=== PATIENT | female | born 1995 | race Two or more races ===

== ENCOUNTER 2024-08-11 21:03 | Emergency (ER) | payer MEDICAID, SELFPAY ==
[2024-08-11 21:03] VITALS: BMI 33.6
[2024-08-11 21:41] VITALS: BP 132/85; PULSE 70; RESP 17; TEMP 37.2; O2SAT 97
--- NOTE | 2024-08-11 21:52 | XR_ITS ---
Examination: Complete OB ultrasound, less than 14 weeks, transabdominal Date and time of exam: August 11, 2024 at 1023 hrs. Indications: Vaginal bleeding beginning 4 days ago worse the last 2 days Technique: Obstetrical ultrasound images less than 14 weeks performed via transabdominal imaging Findings: Uterus 9.7 x 6.5 x 7.9 cm Intrauterine gestation including pole 1.1 cm corresponding to 7 weeks 1 day gestational age No cardiac motion Right ovary 4.2 x 2.8 x 3.1 cm arterial flow Left ovary 3.5 x 2.2 x 2.5 cm arterial flow Impression: Intrauterine gestation corresponding to 7 weeks 1 day gestational age, however no cardiac motion Recommend short-term follow-up pelvic sonography including transvaginal pelvic sonography to exclude demise
--- NOTE | 2024-08-11 21:53 | PD.EDVAGBL ---
ED OB Contraction Preg RMI/HPI General Chief complaint: Vaginal Bleeding Stated complaint: VAGINAL BLEEDING Time Seen by Provider: 08/11/24 21:12 Source: patient Arrival date/time: 08/11/24 21:03 29-year-old female approximately 13 weeks A0 presents emergency department complaining of vaginal bleeding and abdominal cramping for 2 days. Patient denies any fever, chills, dysuria, or any other associated symptom. Mode of arrival: ambulatory Limitations: no limitations Related Data : 3 Para: 2 Ab: 0 Home Medications ?Medication ?Instructions ?Recorded ?Confirmed Vitamin * 1 tab PO QDAY #0 tabs 12/07/15 ferrous sulfate 325 mg (65 mg 325 mg PO BIDWM #0 tabs 04/11/16 iron) tablet (Feosol) Allergies Allergy/AdvReac Type Severity Reaction Status Date / Time No Known Allergies Allergy Unknown Verified 08/11/24 21:05 Review of Systems Review of Systems Systems Reviewed: All systems reviewed, normal except as documented Constitutional Constitutional: Reports system reviewed and no additional complaints, except as documented, Denies body ache(s), Denies chills and Denies fever(s) Eyes Eyes: Reports system reviewed and no additional complaints, except as documented and Denies change in vision ENT Ears, Nose, Mouth, and Throat: Reports system reviewed and no additional complaints, except as documented, Denies disequilibrium, Denies dizziness, Denies sore throat and Denies vertigo Cardiovascular Cardiovascular: Reports system reviewed and no additional complaints, except as documented, Denies chest pain and Denies dyspnea Respiratory Respiratory: Reports system reviewed and no additional complaints, except as documented, Denies chest congestion, Denies cough and Denies dyspnea Gastrointestinal Gastrointestinal: Reports system reviewed and no additional complaints, except as documented, Reports abdominal pain, Denies nausea and Denies vomiting Genitourinary Genitourinary: Reports abnormal vaginal bleeding Musculoskeletal Musculoskeletal: Reports system reviewed and no additional complaints, except as documented, Denies abnormal gait and Denies arthralgias Integumentary/Breasts Skin/Breast: Reports system reviewed and no additional complaints, except as documented, Denies erythema, Denies rash and Denies wounds Neurologic Neurologic: Reports system reviewed and no additional complaints, except as documented, Denies abnormal gait, Denies disequilibrium, Denies dizziness and Denies vertigo Past Medical History Past Medical History CARDIAC: Negative Congestive Heart Failure RESPIRATORY: Negative Chronic Obstructive Pulmonary Disease (COPD) GENITOURINARY: Negative Renal Disease ENDOCRINE: Negative Diabetes Mellitus Type 1 or Diabetes Mellitus Type 2 Social History SMOKING STATUS: Never smoker ED Exam General Limitations: Present no limitations General appearance: Present alert and in no apparent distress Head Head exam: Present atraumatic Eye Eye exam: Present normal appearance, PERRL and EOMI ENT ENT exam: Present normal exam, normal oropharynx and mucous membranes moist Neck Neck exam: Present normal inspection, full ROM and trachea midline Chest Chest inspection: Present normal inspection and symmetric chest wall rise Respiratory Respiratory exam: Present normal lung sounds bilaterally Cardiovascular Cardiovascular exam: Present regular rate, normal rhythm and normal heart sounds Abdominal Exam Abdominal exam: Present soft and normal bowel sounds Extremities Exam Extremities exam: Present normal inspection and full ROM Back Exam Back exam: Present normal inspection and full ROM Neurological Exam Neurological exam: Present alert, oriented X3 and CN II-XII intact Psychiatric Psychiatric exam: Present normal affect and normal mood Skin Skin exam: Present warm, dry, intact and normal color Course Quality Measures none Orders Category Date Time Status US OB <= 14 weeks fetus Stat Exams 08/11/24 21:52 Completed ABO/RH Type Stat Lab 08/11/24 22:00 Completed Beta HCG,Quantitative Stat Lab 08/11/24 22:00 Completed CBC Stat Lab 08/11/24 22:00 Completed CMP [Comprehensive Metabolic Panel] Stat Lab 08/11/24 22:00 Completed Urinalysis, C/S if Indicated Stat Lab 08/11/24 22:29 Completed HYDROcodone*/APAP 5/325 [[place] 5/325] Med 08/11/24 23:53 Discontinued 1 tab PO X1 ONE Ketorolac Inj [Toradol Inj] Med 08/11/24 23:53 Discontinued 30 mg IM X1 ONE Vital Signs Vital signs: Vital Signs Temperature 98.9 F 08/11/24 21:41 Pulse Rate 70 08/11/24 21:41 Respiratory Rate 17 08/11/24 21:41 Blood Pressure 132/85 H 08/11/24 21:41 Pulse Oximetry (%) 97 08/11/24 21:41 Oxygen Delivery Method Room Air 08/11/24 21:41 97% room air within normal limits Vaginal Bleeding MDM Narrative MDM Narrative: 29-year-old female approximately 13 weeks A0 presents emergency department complaining of vaginal bleeding and abdominal cramping for 2 days. Patient denies any fever, chills, dysuria, or any other associated symptom. CBC unremarkable for any anemia or leukocytosis. CMP was unremarkable. Urinalysis was also unremarkable. Beta-hCG 7341. Ultrasound findings: Intrauterine gestation corresponding to 7 weeks 1 day gestational age, however no cardiac motion Recommend short-term follow-up pelvic sonography including transvaginal pelvic sonography to exclude demise. Patient appears nontoxic and is hemodynamic stable. Patient instructed to follow-up with [facility] and have repeat ultrasound and trend beta-hCG. Patient data External records reviewed:: [facility] previous records Clinical information provided by:: patient Social determinants that could affect healthcare access:: none Patient has the following chronic illnesses:: See chart How is presenting disease/condition affected by chronic disease/condition?: uneffected by Evaluation data The following diagnostics were reviewed and interpreted by me:: lab results and radiology exam(s) Lab and/or radiology exams considered but not ordered:: Ordered Interpretation Summary: Interpreted by me Medications / Prescriptions Medications or Prescriptions considered but not ordered:: N/A Medication administrations:: Medication Administration History Discontinued Medications Hydrocodone Bitart/Acetaminophen (Hydrocodone/Apap 5/325 Tablet) 1 tab PO X1 ONE Stop: 08/11/24 23:54 Last Admin: 08/11/24 23:55 Dose: Not Given Documented By: Non-Admin Reason: Cancelled by Provider Ketorolac Tromethamine (Ketorolac Inj 60 Mg/2 Ml Vial) 30 mg IM X1 ONE Stop: 08/11/24 23:54 Last Admin: 08/11/24 23:56 Dose: Not Given Documented By: Non-Admin Reason: Cancelled by Provider N/A Consultations Consultation(s) initiated? (list below): No Diagnosis Vaginal Bleeding Differential Diagnosis: missed , threatened , dysfunctional uterine bleeding, menometrorrhagia, incomplete , ectopic without intrauterine and vaginal bleeding Most likely diagnosis given after review of the tests above:: Vaginal bleeding affecting early Admission Indicated Admission indicated?: not indicated Admission Request Was there a request for admission?: No Disposition Plan Disposition Plan: Discharge Discharge Attestation Discharge Attestation: The patient and all family members were given an opportunity to ask questions and understood the discharge instructions. Discharge instructions specifically effects, indications for sooner follow up or return to the emergency department, and the expected course of current diagnosis. Patient condition: Stable Discharge Plan Plan Patient Disposition: HOME (Self Care) Disposition Comment: Stable Prescriptions/Referrals Prescriptions/Med Rec: No Action Vitamin * 1 EACH tablet 1 tab PO QDAY Qty: 0 ferrous sulfate [Feosol] 1 TAB tablet 325 mg PO BIDWM Qty: 0 Referrals: Ash Ascencio MD [Primary Care Provider] - In 1 week Problem List Clinical Impression: Vaginal bleeding affecting early Patient/Caregiver Discharge Instructions Discharge Activity: activity as tolerated Education Materials: Bleeding During Early Additional Instructions: Pelvic rest and continue taking youre prenatals. Your Beta hcg level is 7341. Follow-up with [facility] for repeat beta-hCG levels and repeat ultrasound. Return to emergency department for any worsening symptoms or as needed. Print Language: Niuean Stand Alone Forms: Donya Award Info., Patient Portal Info Letter PA/STROKE COORDINATOR Supervising Physician PA/STROKE COORDINATOR Supervising Physician: Dr. Hernandez
[2024-08-11 22:23] LABS: Basophils % (Auto) 0 % (0-2.5); Eosinophils # (Auto) 0.2 Thou/mm3 (0.0-0.5); Eosinophils % (Auto) 2 % (0-10); Hematocrit 36.5 % (36.0-46.0); Immature Granulocytes % (Auto) 0 % (0-0); Immature Granulocytes Auto 0.02 Thou/mm3 (0.00-0.00); Lymphocytes # (Auto) 2.8 Thou/mm3 (1.0-4.8); Lymphocytes % (Auto) 29 % (10-50); Mean Corpuscular HGB Conc 32.9 g/dl (31.0-37.0); Mean Corpuscular Volume 85 fL (80-100); Monocytes # (Auto) 0.6 Thou/mm3 (0.0-0.8); Monocytes % (Auto) 6 % (0-12); Neutrophils # (Auto) 6.2 Thou/mm3 (1.8-7.7); Neutrophils % (Auto) 63 % (37-80); Nucleated Red Blood Cell % 0 /100 WBC (0); Platelet Count 341 Thou/mm3 (140-440); RDW Standard Deviation 43.6 fL (36.4-46.3); Red Blood Count 4.28 Miln/mm3 (4.00-5.20); White Blood Count 9.8 Thou/mm3 (3.6-11.0)
[2024-08-11 22:46] LABS: Collection Type, Urine Clean Catch
[2024-08-11 22:57] LABS: Alanine Aminotransferase 9 U/L (10-49); Albumin, Serum 4.7 gm/dL (3.5-5.0); Alkaline Phosphatase 52 U/L (46-116); Anion Gap 9 (7-16); Aspartate Amino Transferase 11 U/L (0-34); BUN/Creatinine Ratio 11 Ratio (12-20); Bilirubin,Total 0.3 mg/dL (0.3-1.2); Blood Urea Nitrogen 8 mg/dL (9-23); Calcium 9.5 mg/dL (8.3-10.6); Calcium (Corrected) 9.5 mg/dL (8.5-10.1); Chloride 105 mMol/L (98-107); Creatinine (Component) 0.7 mg/dL (0.6-1.3); Estimated Creatinine Clearance 124.5 mL/min (>60); Globulin 2.4 gm/dL (2.3-3.5); Glucose 80 mg/dL (74-106); Osmolality,Calculated 276 (275-295); Potassium 3.5 mMol/L (3.4-5.1); Sodium 140 mMol/L (136-145); Total Protein 7.1 gm/dL (5.7-8.2); eGFR > 60 See Note
[2024-08-11 22:58] LABS: Bacteria,Urine Rare; Bilirubin,Urine Negative (Negative); Blood,Urine 2+ (Negative); Clarity,Urine Clear (Clear/Hazy); Color,Urine Lt-Yellow (Lt Yel-Yel); Culture Indicated,Urine Not Indicated; Glucose, Urine Negative (Negative); Ketones,Urine Negative (Negative); Leukocyte Esterase,Urine Positive (Negative); Nitrite,Urine Negative (Negative); PH,Urine 6.5 (5.0-7.0); Protein,Urine Negative (Neg - Trace); RBC,Urine 2 /hpf (0-3); Specific Gravity,Urine 1.024 (1.001-1.035); Squamous Epithelial Cell,Urine 2 /hpf (0-5); Urobilinogen,Urine Negative mg/dL (0.0-1.0); WBC,Urine 2 /hpf (0-5)
[2024-08-11 23:08] LABS: Beta HCG,Quantitative 7341 mIU/mL (<5.0)
== END 2024-08-12 01:02 | disposition home or self-care (01) ==
PROVIDERS: Emergency Provider Emergency Medicine; PCP Family Medicine
DX: O20.9 Hemorrhage in early pregnancy, unspecified (principal); Z3A.13 13 weeks gestation of pregnancy
CPT/HCPCS: 36415; 76801; 80053; 81001; 84702; 85025; 86900; 86901; 99284

== ENCOUNTER 2024-08-12 20:22 | Emergency (ER) | payer MEDICAID, SELFPAY ==
[2024-08-12 20:23] VITALS: BMI 33.6
[2024-08-12 21:03] VITALS: BP 136/83; PULSE 88; RESP 18; TEMP 36.9; O2SAT 99
--- NOTE | 2024-08-12 21:15 | XR_ITS ---
Examination: Complete OB ultrasound, less than 14 weeks, transabdominal Date and time of exam: August 12, 2024 at 1008 hrs. Indications: Vaginal bleeding beginning 5 days ago worse the last 3 days Technique: Obstetrical ultrasound images less than 14 weeks performed via transabdominal imaging Findings: Uterus 8.9 x 5.8 x 6.2 cm No intrauterine gestation or retained products Endometrial stripe not visible Right ovary 3.8 x 2.0 x 3.2 cm arterial flow Left ovary 4.0 x 2.7 x 2.7 cm arterial flow No fluid in the cul-de-sac Impression: No intrauterine gestation or retained products of conception Negative for ectopic
--- NOTE | 2024-08-12 21:15 | PD.EDRME ---
Rapid Medical Screening Exam RME Arrival date/time: 08/12/24 20:22 21-year-old female G3, approximately 7 weeks presents emergency department complaining of increased vaginal bleeding and passing of tissue earlier today. Patient reports had a change 7 pads total today. Chief Complaint: Vaginal Bleeding Time Seen by Provider: 08/12/24 20:40 Vital signs: Vital Signs Temperature 98.5 F 08/12/24 21:03 Pulse Rate 88 08/12/24 21:03 Respiratory Rate 18 08/12/24 21:03 Blood Pressure 136/83 H 08/12/24 21:03 Pulse Oximetry (%) 99 08/12/24 21:03 Oxygen Delivery Method Room Air 08/12/24 21:03 Vital signs reviewed by provider: Yes
[2024-08-12 21:57] LABS: Collection Type, Urine Clean Catch; Squamous Epithelial Cell,Urine 0 /hpf (0-5)
[2024-08-12 21:58] LABS: Basophils # (Auto) 0.1 Thou/mm3 (0.0-0.2); Basophils % (Auto) 1 % (0-2.5); Eosinophils # (Auto) 0.2 Thou/mm3 (0.0-0.5); Eosinophils % (Auto) 2 % (0-10); Hematocrit 37.6 % (36.0-46.0); Hemoglobin 12.7 g/dL (12.0-16.0); Immature Granulocytes % (Auto) 0 % (0-0); Immature Granulocytes Auto 0.03 Thou/mm3 (0.00-0.00); Lymphocytes # (Auto) 2.1 Thou/mm3 (1.0-4.8); Lymphocytes % (Auto) 20 % (10-50); Mean Corpuscular HGB Conc 33.8 g/dl (31.0-37.0); Mean Corpuscular Hemoglobin 28.3 pg (25.0-35.0); Mean Corpuscular Volume 84 fL (80-100); Monocytes # (Auto) 0.5 Thou/mm3 (0.0-0.8); Monocytes % (Auto) 4 % (0-12); Neutrophils % (Auto) 74 % (37-80); Nucleated Red Blood Cell % 0 /100 WBC (0); Platelet Count 327 Thou/mm3 (140-440); Red Blood Count 4.48 Miln/mm3 (4.00-5.20); White Blood Count 10.9 Thou/mm3 (3.6-11.0)
[2024-08-12 22:13] LABS: Alanine Aminotransferase 9 U/L (10-49); Albumin, Serum 4.9 gm/dL (3.5-5.0); Albumin/Globulin Ratio 1.8 (1.2-2.2); Alkaline Phosphatase 51 U/L (46-116); Anion Gap 9 (7-16); Aspartate Amino Transferase 16 U/L (0-34); BUN/Creatinine Ratio 9 Ratio (12-20); Bilirubin,Total 0.5 mg/dL (0.3-1.2); Blood Urea Nitrogen 6 mg/dL (9-23); Calcium 9.6 mg/dL (8.3-10.6); Calcium (Corrected) 9.6 mg/dL (8.5-10.1); Carbon Dioxide 24.1 mMol/L (20.0-31.0); Chloride 105 mMol/L (98-107); Creatinine (Component) 0.7 mg/dL (0.6-1.3); Estimated Creatinine Clearance 124.5 mL/min (>60); Globulin 2.7 gm/dL (2.3-3.5); Glucose 95 mg/dL (74-106); Osmolality,Calculated 273 (275-295); Potassium 3.7 mMol/L (3.4-5.1); Sodium 138 mMol/L (136-145); Total Protein 7.6 gm/dL (5.7-8.2); eGFR > 60 See Note
[2024-08-12 22:19] LABS: Bilirubin,Urine Negative (Negative); Blood,Urine 3+ (Negative); Color,Urine Brown (Lt Yel-Yel); Glucose, Urine Negative (Negative); Ketones,Urine 1+ (Negative); Leukocyte Esterase,Urine Positive (Negative); Nitrite,Urine Negative (Negative); PH,Urine 5.5 (5.0-7.0); Protein,Urine 1+ (Neg - Trace); RBC,Urine 6323 /hpf (0-3); Specific Gravity,Urine 1.014 (1.001-1.035); Urobilinogen,Urine Negative mg/dL (0.0-1.0); WBC,Urine 56 /hpf (0-5)
[2024-08-12 22:24] LABS: Clarity,Urine Hazy (Clear/Hazy); Culture Indicated,Urine Yes
[2024-08-12 22:33] LABS: Beta HCG,Quantitative 5850 mIU/mL (<5.0)
--- NOTE | 2024-08-12 23:08 | PD.EDVAGBL ---
ED OB Contraction Preg RMI/HPI General Chief complaint: Vaginal Bleeding Stated complaint: miscarriage, bleeding and cramping Time Seen by Provider: 08/12/24 20:40 Source: patient Arrival date/time: 08/12/24 20:22 21-year-old female G3, approximately 7 weeks presents emergency department complaining of increased vaginal bleeding and passing of tissue earlier today. Patient reports had a change 7 pads total today. Mode of arrival: ambulatory Limitations: no limitations RME / HPI RME / HPI Narrative: 08/12/24 20:22 21-year-old female G3, approximately 7 weeks presents emergency department complaining of increased vaginal bleeding and passing of tissue earlier today. Patient reports had a change 7 pads total today. Related Data : 3 Para: 2 Home Medications ?Medication ?Instructions ?Recorded ?Confirmed Vitamin * 1 tab PO QDAY #0 tabs 12/07/15 ferrous sulfate 325 mg (65 mg 325 mg PO BIDWM #0 tabs 04/11/16 iron) tablet (Feosol) Previous Rx's ?Medication ?Instructions ?Recorded acetaminophen 500 mg capsule 500 mg PO Q6H PRN pain #30 caps 08/12/24 Allergies Allergy/AdvReac Type Severity Reaction Status Date / Time No Known Allergies Allergy Unknown Verified 08/11/24 21:05 Review of Systems Review of Systems Systems Reviewed: All systems reviewed, normal except as documented Constitutional Constitutional: Reports system reviewed and no additional complaints, except as documented, Denies body ache(s), Denies chills and Denies fever(s) Eyes Eyes: Reports system reviewed and no additional complaints, except as documented and Denies change in vision ENT Ears, Nose, Mouth, and Throat: Reports system reviewed and no additional complaints, except as documented, Denies disequilibrium, Denies dizziness, Denies sore throat and Denies vertigo Cardiovascular Cardiovascular: Reports system reviewed and no additional complaints, except as documented, Denies chest pain and Denies dyspnea Respiratory Respiratory: Reports system reviewed and no additional complaints, except as documented, Denies chest congestion, Denies cough and Denies dyspnea Gastrointestinal Gastrointestinal: Reports system reviewed and no additional complaints, except as documented, Denies abdominal pain, Denies nausea and Denies vomiting Genitourinary Genitourinary: Reports abnormal vaginal bleeding Musculoskeletal Musculoskeletal: Reports system reviewed and no additional complaints, except as documented, Denies abnormal gait and Denies arthralgias Integumentary/Breasts Skin/Breast: Reports system reviewed and no additional complaints, except as documented, Denies erythema, Denies rash and Denies wounds Neurologic Neurologic: Reports system reviewed and no additional complaints, except as documented, Denies abnormal gait, Denies disequilibrium, Denies dizziness and Denies vertigo Past Medical History Past Medical History CARDIAC: Negative Congestive Heart Failure RESPIRATORY: Negative Chronic Obstructive Pulmonary Disease (COPD) GENITOURINARY: Negative Renal Disease ENDOCRINE: Negative Diabetes Mellitus Type 1 or Diabetes Mellitus Type 2 Social History SMOKING STATUS: Never smoker ED Exam General Limitations: Present no limitations General appearance: Present alert and in no apparent distress Head Head exam: Present atraumatic Eye Eye exam: Present normal appearance, PERRL and EOMI ENT ENT exam: Present normal exam, normal oropharynx and mucous membranes moist Neck Neck exam: Present normal inspection, full ROM and trachea midline Chest Chest inspection: Present normal inspection and symmetric chest wall rise Respiratory Respiratory exam: Present normal lung sounds bilaterally Cardiovascular Cardiovascular exam: Present regular rate, normal rhythm and normal heart sounds Abdominal Exam Abdominal exam: Present soft and normal bowel sounds Extremities Exam Extremities exam: Present normal inspection and full ROM Back Exam Back exam: Present normal inspection and full ROM Neurological Exam Neurological exam: Present alert, oriented X3 and CN II-XII intact Psychiatric Psychiatric exam: Present normal affect and normal mood Skin Skin exam: Present warm, dry, intact and normal color Course Quality Measures none Orders Category Date Time Status US OB <= 14 weeks fetus Stat Exams 08/12/24 21:15 Completed Beta HCG,Quantitative Stat Lab 08/12/24 21:35 Completed CBC Stat Lab 08/12/24 21:35 Completed CMP [Comprehensive Metabolic Panel] Stat Lab 08/12/24 21:35 Completed Urinalysis, C/S if Indicated Stat Lab 08/12/24 21:40 Completed Urine Culture Stat Lab 08/12/24 21:40 Received Vital Signs Vital signs: Vital Signs Temperature 98.5 F 08/12/24 21:03 Pulse Rate 88 08/12/24 21:03 Respiratory Rate 18 08/12/24 21:03 Blood Pressure 136/83 H 08/12/24 21:03 Pulse Oximetry (%) 99 08/12/24 21:03 Oxygen Delivery Method Room Air 08/12/24 21:03 99% room air within normal limits Vaginal Bleeding MDM Narrative MDM Narrative: 21-year-old female G3, approximately 7 weeks presents emergency department complaining of increased vaginal bleeding and passing of tissue earlier today. Patient reports had a change 7 pads total today. CBC unremarkable for any anemia or leukocytosis. CMP unremarkable. Beta-hCG trending down to 5850 from previous 7341. Ultrasound impression: No intrauterine gestation or retained products of conception, Negative for ectopic . Urinalysis positive for WBCs RBCs and leukocytes but patient is asymptomatic will not treat at this time. Patient likely having miscarriage. Patient appears nontoxic and is hemodynamically stable. Patient instructed to follow-up with [facility] upon discharge and return to emergency department for any worsening symptoms or as needed Patient data External records reviewed:: [facility] previous records Clinical information provided by:: patient Social determinants that could affect healthcare access:: none Patient has the following chronic illnesses:: None How is presenting disease/condition affected by chronic disease/condition?: no chronic disease Evaluation data The following diagnostics were reviewed and interpreted by me:: lab results and radiology exam(s) Lab and/or radiology exams considered but not ordered:: Ordered Interpretation Summary: Interpreted by me Medications / Prescriptions Medications or Prescriptions considered but not ordered:: N/A Medication administrations:: N/A Consultations Consultation(s) initiated? (list below): No Diagnosis Vaginal Bleeding Differential Diagnosis: missed , threatened , dysfunctional uterine bleeding, menometrorrhagia, incomplete , ectopic without intrauterine and vaginal bleeding Most likely diagnosis given after review of the tests above:: Threatened Admission Indicated Admission indicated?: not indicated Admission Request Was there a request for admission?: No Disposition Plan Disposition Plan: Discharge Discharge Attestation Discharge Attestation: The patient and all family members were given an opportunity to ask questions and understood the discharge instructions. Discharge instructions specifically effects, indications for sooner follow up or return to the emergency department, and the expected course of current diagnosis. Patient condition: Stable Discharge Plan Plan Patient Disposition: HOME (Self Care) Disposition Comment: Stable Prescriptions/Referrals Prescriptions/Med Rec: New acetaminophen 500 mg capsule 500 mg PO Q6H PRN (Reason: pain) Qty: 30 0RF No Action Vitamin * 1 EACH tablet 1 tab PO QDAY Qty: 0 ferrous sulfate [Feosol] 1 TAB tablet 325 mg PO BIDWM Qty: 0 Referrals: Ash Ascencio MD [Primary Care Provider] - In 1 week Problem List Clinical Impression: Threatened Patient/Caregiver Discharge Instructions Discharge Activity: activity as tolerated Education Materials: ED Possible Miscarriage ... Additional Instructions: Plenty of fluids and get plenty of rest. Take Tylenol as needed for pain. Follow-up with [facility] in 2 to 3 days. Return to emergency department for any worsening symptoms as needed. Print Language: Amharic Stand Alone Forms: Donya Award Info., Patient Portal Info Letter PA/TRAFFIC TECHNICIAN Supervising Physician PA/TRAFFIC TECHNICIAN Supervising Physician: Dr. Gomez
[2024-08-12 23:26] VITALS: BP 126/90; RESP 18
== END 2024-08-12 23:25 | disposition home or self-care (01) ==
PROVIDERS: Emergency Provider Emergency Medicine; PCP Family Medicine
DX: O20.0 Threatened abortion (principal); Z3A.01 Less than 8 weeks gestation of pregnancy
CPT/HCPCS: 36415; 76801; 80053; 81001; 84702; 85025; 87086; 99284

== ENCOUNTER 2025-05-30 16:10 | Emergency (ER) | payer MEDICAID, SELFPAY ==
[2025-05-30 16:11] VITALS: BMI 30.1
[2025-05-30 16:29] VITALS: BP 147/99; PULSE 89; RESP 17; TEMP 36.9; O2SAT 97
--- NOTE | 2025-05-30 16:47 | EKG_ITS ---
[facility] Test Date: 2025-05-30 Pat Name: LOKI CISNEROS Department: Room: - Gender: Female [employer]: : 1995 Requested By: Nano Juarez Order Number: [id number] Reading MD: Nano Juarez Measurements Intervals [place] Rate: 92 P: 42 CA: 137 QRS: 12 QRSD: 93 T: 3 QT: 361 QTc: 447 Interpretive Statements SINUS RHYTHM MINIMAL VOLTAGE CRITERIA FOR LVH, CONSIDER NORMAL VARIANT [MEETS CRITERIA IN ONE OF: R(aVL), S(V1), R(V5), R(V5/V6)+S(V1)] NONSPECIFIC T-WAVE ABNORMALITY No previous ECG available for comparison /store/S0/[id number].pdf
--- NOTE | 2025-05-30 16:47 | XR_ITS ---
EXAMINATION: PA chest single view TECHNIQUE: Upright PA chest single view Date and time: May 30, 2025, 1712 hours INDICATIONS: Chest pain with hypertension today FINDINGS: Normal heart size. Lungs are clear. The osseous factors are intact IMPRESSION: No active disease
--- NOTE | 2025-05-30 16:49 | EDRME_ITS ---
Rapid Medical Screening Exam [facility] Arrival date/time: 05/30/25 16:10 This is a 30-year-old female that comes into the emergency room with complaints of abdominal pain nausea vomiting. Patient states she was drinking last night and had about 4-5 drinks. Patient states that she knows what a hangover is but she feels like this is not a hangover. Patient states he sometimes drinks more and does not feel this terrible. Patient denies any drug use. Patient also complains of chest pain and chest tightness and she says the pain radiates down her left arm. Patient has a history of high blood pressure I have greeted and performed a focused initial assessment of this patient. Initial appropriate labs ordered at this time. A comprehensive ED assessment and evaluation of the patient and analysis of all test and completion of medical decision making process will be conducted by additional ED provider. Chief Complaint: Nausea/Vomiting/Diarrhea Time Seen by Provider: 05/30/25 16:22 Vital signs: Vital Signs Temperature 98.5 F 05/30/25 16:29 Pulse Rate 89 05/30/25 16:29 Respiratory Rate 17 05/30/25 16:29 Blood Pressure 147/99 H 05/30/25 16:29 Pulse Oximetry (%) 97 05/30/25 16:29 Oxygen Delivery Method Room Air 05/30/25 16:29 Exam: Alert and oriented, breathing even and unlabored abdominal pain Clinical Impression: Abdominal pain
[2025-05-30] MEDS: ONDANSETRON ODT 4 MG TABRAP PO (17:10)
[2025-05-30 17:16] LABS: Collection Type, Urine Voided
[2025-05-30 17:23] LABS: Basophils # (Auto) 0.0 Thou/mm3 (0.0-0.2); Basophils % (Auto) 0 % (0-2.5); Eosinophils # (Auto) 0.0 Thou/mm3 (0.0-0.5); Eosinophils % (Auto) 0 % (0-10); Hematocrit 40.1 % (36.0-46.0); Hemoglobin 13.2 g/dL (12.0-16.0); Immature Granulocytes Auto 0.04 Thou/mm3 (0.00-0.00); Lymphocytes # (Auto) 1.6 Thou/mm3 (1.0-4.8); Lymphocytes % (Auto) 12 % (10-50); Mean Corpuscular HGB Conc 32.9 g/dl (31.0-37.0); Mean Corpuscular Hemoglobin 28.4 pg (25.0-35.0); Mean Corpuscular Volume 86 fL (80-100); Monocytes # (Auto) 0.4 Thou/mm3 (0.0-0.8); Monocytes % (Auto) 3 % (0-12); Neutrophils # (Auto) 11.8 Thou/mm3 (1.8-7.7); Neutrophils % (Auto) 85 % (37-80); Nucleated Red Blood Cell # 0.00 Thou/mm3 (0.00-0.00); Nucleated Red Blood Cell % 0 /100 WBC (0); Platelet Count 406 Thou/mm3 (140-440); RDW Standard Deviation 44.7 fL (36.4-46.3); Red Blood Count 4.64 Miln/mm3 (4.00-5.20); White Blood Count 13.9 Thou/mm3 (3.6-11.0)
[2025-05-30 17:35] LABS: B-Type Natriuretic Peptide < 20 pg/mL (0-100)
[2025-05-30 17:38] LABS: HCG Qualitative,Urine Negative
[2025-05-30 17:44] LABS: Bilirubin,Urine Negative (Negative); Blood,Urine Negative (Negative); Color,Urine Yellow (Lt Yel-Yel); Culture Indicated,Urine Not Indicated; Glucose, Urine Negative (Negative); Ketones,Urine Negative (Negative); Leukocyte Esterase,Urine Negative (Negative); Nitrite,Urine Negative (Negative); PH,Urine 8.0 (5.0-7.0); Protein,Urine 1+ (Neg - Trace); RBC,Urine 1 /hpf (0-3); Specific Gravity,Urine 1.028 (1.001-1.035); Squamous Epithelial Cell,Urine 6 /hpf (0-5); Urobilinogen,Urine Negative mg/dL (0.0-1.0); WBC,Urine 2 /hpf (0-5)
[2025-05-30 17:45] LABS: Clarity,Urine Hazy (Clear/Hazy)
[2025-05-30 17:47] LABS: Alanine Aminotransferase 8 U/L (10-49); Albumin, Serum 5.1 gm/dL (3.5-5.0); Albumin/Globulin Ratio 2.6 (1.2-2.2); Alkaline Phosphatase 46 U/L (46-116); Anion Gap 10 (7-16); Aspartate Amino Transferase 13 U/L (0-34); BUN/Creatinine Ratio 11 Ratio (12-20); Bilirubin,Total 0.6 mg/dL (0.3-1.2); Blood Urea Nitrogen 8 mg/dL (9-23); Calcium 9.5 mg/dL (8.3-10.6); Calcium (Corrected) 9.5 mg/dL (8.5-10.1); Carbon Dioxide 25.2 mMol/L (20.0-31.0); Chloride 108 mMol/L (98-107); Creatinine (Component) 0.7 mg/dL (0.6-1.3); Estimated Creatinine Clearance 116.6 mL/min (>60); Globulin 2.0 gm/dL (2.3-3.5); Glucose 103 mg/dL (74-106); Lipase 27 U/L (12-53); Osmolality,Calculated 283 (275-295); Potassium 3.8 mMol/L (3.4-5.1); Sodium 143 mMol/L (136-145); Total Protein 7.1 gm/dL (5.7-8.2); Troponin I < 0.002 ng/mL (0.0-0.045); eGFR > 60 See Note
[2025-05-30 17:56] LABS: Amphetamine/Methamp Scrn,U Negative (Negative); Barbiturate Screen,Urine Negative (Negative); Benzodiazepines Screen,Urine Negative (Negative); Benzoylecgonine Screen, Ur Positive (Negative); Fentanyl Screen,Urine Negative (Negative); Opiate Screen,Urine Negative (Negative); THC Screen,Urine Positive (Negative)
--- NOTE | 2025-05-30 18:21 | EDNOTE_ITS ---
ED Arrhythmia Palp. RME/HPI General Chief Complaint: Nausea/Vomiting/Diarrhea Stated Complaint: MY HEART IS RACING ; DRANK LAST NIGHT Time Seen by Provider: 05/30/25 16:22 Arrival date/time: 05/30/25 16:10 RME / HPI RME / HPI narrative: 30-year-old female that comes into the emergency room with complaints of abdominal pain nausea vomiting. Patient states she was drinking last night and had about 4-5 drinks. Patient states that she knows what a hangover is but she feels like this is not a hangover. Patient states he sometimes drinks more and does not feel this terrible. Patient denies any drug use. Patient also complains of chest pain and chest tightness and she says the pain radiates down her left arm. Patient has a history of high blood pressure Exam: Alert and oriented, breathing even and unlabored abdominal pain Impression: Abdominal pain Related Data Home Medications ?Medication ?Instructions ?Recorded ?Confirmed Vitamin * 1 tab PO QDAY #0 tabs ferrous sulfate 325 mg (65 mg 325 mg PO BIDWM #0 tabs 04/11/16 iron) tablet (Feosol) Previous Rx's ?Medication ?Instructions ?Recorded acetaminophen 500 mg capsule 500 mg PO Q6H PRN pain #3 0 caps 08/12/24 ondansetron HCl 4 mg tablet 4 mg PO Q8H PRN nausea and 05/30/25 vomiting 5 days #20 tabs Allergies Allergy/AdvReac Type Severity Reaction Status Date / Time No Known Allergies Allergy Unknown Verified 05/30/25 16:14 Review of Systems Review of Systems Narrative Review of Systems: Review of system reviewed and within normal limits except mentioned in HPI ED Exam Narrative Physical exam: VITAL SIGNS: Reviewed. GENERAL APPEARANCE: Alert and interactive, follows commands, no acute distress, HEAD AND FACE: Non-traumatic. ENT: PERRL, pink conjunctivitis, eyelid no trauma, Mucous membrane moist. NECK: Supple, nontender, no nuchal rigidity. CHEST: No tenderness, no crepitus, no paradoxical movement, no retractions. LUNGS: Clear, well ventilated, symmetric, no rales, no wheezing, no ronchi, no stridor, good breath sounds bilaterally. HEART: Regular rate, regular rhythm, no murmur, no gallops. ABDOMEN: Soft, positive bowel sounds, nondistended, no guarding, nontender, no rebound, no masses, RECTAL: Deferred. GENITAL: Deferred. NEUROLOGICAL: Gross motor function intact sensory function intact, Appropriate for age. MUSCULOSKELETAL: low back nontender, full range of motion. EXTREMITIES: Nontender, full range of motion. SKIN: Color pink, dry, no rash, no lacerations, no abrasions, no contusions. LYMPHATICS: Deferred. Course Quality Measures none Orders Category Date Time Status EKG (ED ONLY) *Do not use* NOW Care 05/30/25 16:47 Completed EKG (ED Only) Stat Exams 05/30/25 16:47 Draft XR chest 1V Stat Exams 05/30/25 16:47 Completed BNP [B-Type Natriuretic Peptide] Stat Lab 05/30/25 17:00 Completed CBC Stat Lab 05/30/25 17:00 Completed Comprehensive Metabolic Panel Stat Lab 05/30/25 17:00 Completed Drug Screen,Urine Stat Lab 05/30/25 16:54 Completed HCG Qualitative,Urine Stat Lab 05/30/25 16:57 Completed Lipase Stat Lab 05/30/25 17:00 Completed Troponin I Stat Lab 05/30/25 17:00 Completed Urinalysis, C/S if Indicated Stat Lab 05/30/25 16:57 Completed Ondansetron Odt [Zofran Odt] Med 05/30/25 16:48 Discontinued 4 mg PO X1 ONE Vital Signs Vital signs: Vital Signs Temperature 98.5 F 05/30/25 16:29 Pulse Rate 89 05/30/25 16:29 Respiratory Rate 17 05/30/25 16:29 Blood Pressure 147/99 H 05/30/25 16:29 Pulse Oximetry (%) 97 05/30/25 16:29 Oxygen Delivery Method Room Air 05/30/25 16:29 Arrhythmia/Palpitations MDM Narrative MDM Narrative:: 30-year-old female that comes into the emergency room with complaints of abdominal pain nausea vomiting. Patient states she was drinking last night and had about 4-5 drinks. Patient states that she knows what a hangover is but she feels like this is not a hangover. Patient states he sometimes drinks more and does not feel this terrible. Patient denies any drug use. Patient also complains of chest pain and chest tightness and she says the pain radiates down her left arm. Patient has a history of high blood pressure patient's workup significant for slight leukocytosis of 13.9. Tested positive for cocaine and marijuana. There is other labs unremarkable. Patient's palpitation could be related to cocaine abuse. Patient adamantly denies cocaine abuse. EKG showed normal sinus rhythm, ventricular rate of 92 bpm, no ST segm ent elevation or depression noted. I personally reviewed and interpreted the x- ray of this patient. There is no acute abnormalities found, no infiltrates no pneumothorax no hemothorax normal chest x-ray. Review of other structures was without significant abnormal findings also. I additionally reviewed the radiologist report and agree with the interpretation. Patient stable for discharge home. Patient was advised to stop abusing cocaine. Patient data External records reviewed:: None Clinical information provided by:: patient Social determinants that could affect healthcare access:: substance use Patient has the following chronic illnesses:: Hypertension How is presenting disease/condition affected by chronic disease/condition?: exacerbated by Evaluation data The following diagnostics were reviewed and interpreted by me:: lab results, radiology exam(s) and EKG tracing(s) Lab and/or radiology exams considered but not ordered:: None Interpretation Summary: See results MDM Medications / Prescriptions Medications or Prescriptions considered but not ordered:: None Medication administrations:: Medication Administration History Discontinued Medications Ondansetron HCl (Ondansetron Odt 4 Mg Tabrap) 4 mg PO X1 ONE; Protocol Stop: 05/30/25 16:49 Last Admin: 05/30/25 17:10 Dose: 4 mg Documented By: HOLLY Campos Consultations Consultation(s) initiated? (list below): No Diagnosis Differential diagnosis arrhythmia/palpitations: palpitations and other (, cocaine abuse dehydration) Most likely diagnosis given after review of the tests above:: Dehydration, cocaine abuse, palpitation Admission Indicated Admission indicated?: not indicated Admission Request Was there a request for admission?: No Disposition Plan Disposition Plan: Discharge Discharge Attestation Discharge Attestation: The patient was given an opportunity to ask questions and understood the discharge instructions. Discharge instructions specifically effects, indications for sooner follow up or return to the emergency department, and the expected course of current diagnosis. Patient condition: Stable Discharge Plan Plan Patient Disposition: HOME (Self Care) Discharge Disposition comment: stable Prescriptions/Referrals Prescriptions/Med Rec: New ondansetron HCl 4 mg tablet 4 mg PO Q8H PRN (Reason: nausea and vomiting) 5 Days Qty: 20 0RF No Action Vitamin * 1 EACH tablet 1 tab PO QDAY Qty: 0 ferrous sulfate [Feosol] 1 TAB tablet 325 mg PO BIDWM Qty: 0 acetaminophen 500 mg capsule 500 mg PO Q6H PRN (Reason: pain) Qty: 30 0RF Referrals: No Primary/Family,Physician [Primary Care Provider] - In 1 week Problem List Clinical Impression: Palpitation, Cocaine abuse Patient/Caregiver Discharge Instructions Discharge Activity: activity as tolerated Education Materials: ED Palpitations Additional Instructions: Thank you for the opportunity for serving you today. You are stable for discharged . You are advised to: Follow-up with your PCP in 1 to 2 days Return to ED for worsening of symptoms Increase oral fluids Take medication as prescribed You are having palpitation probably secondary to cocaine. you tested positive for cocaine today. use . Print Language: Luxembour[place] Stand Alone Forms: Donya Award Info., Patient Portal Info Letter PA/MERY Supervising Physician PA/MERY Supervising Physician: MD Sary
== END 2025-05-30 18:23 | disposition home or self-care (01) ==
PROVIDERS: Nurse Practitioner Family; Emergency Provider Emergency Medicine
DX: F14.10 Cocaine abuse, uncomplicated (principal)
CPT/HCPCS: 36415; 71045; 80053; 80307; 81001; 81025; 83690; 83880; 84484; 85025; 93005; 99283; Q0162